=== PATIENT | female | born 1995 ===

== ENCOUNTER 2019-09-06 17:08 | Emergency (ER) | payer OTHER, MEDICAID ==
[~2019-09-06] VITALS: Ht 165.1 cm; Wt 88.2 kg
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
[2019-09-06 17:33] LABS: BASOPHILS # (AUTO) 0.03 x10^3/uL (0-0.1); BASOPHILS % (AUTO) 0 % (0-1); EOSINOPHILS # (AUTO) 0.08 x10^3/uL (0-0.4); EOSINOPHILS % (AUTO) 1 % (1-7); LYMPHOCYTES # (AUTO) 2.41 x10^3/uL (1-3.4); LYMPHOCYTES % (AUTO) 34 % (22-44); MD NO; MEAN CORPUSCULAR HEMOGLOBIN 31.3 pg (27.0-34.8); MEAN CORPUSCULAR VOLUME 92.1 fL (80-100); MEAN PLATELET VOLUME 8.6 fL (7.4-10.4); MONOCYTES # (AUTO) 0.36 x10^3/uL (0.2-0.8); MONOCYTES % (AUTO) 5 % (2-9); NEUTROPHILS # (AUTO) 4.21 x10^3/uL (1.8-6.8); NEUTROPHILS % (AUTO) 59 % (42-75); PLATELET COUNT 255 x10^3/uL (130-400); RED BLOOD COUNT 4.54 x10^6/uL (3.82-5.3); RED CELL DISTRIBUTION WIDTH 12.5 % (9.6-15.2)
--- NOTE | 2019-09-06 17:40 | NUR ---
DR. MCKINLEY AT BEDSIDE FOR EVALUATION, AWAITING ORDERS
[2019-09-06 17:44] LABS: ALANINE AMINOTRANSFERASE 19 U/L (12-78); ANION GAP 5 mmol/L (5-15); CALCIUM 9.7 mg/dL (8.5-10.1); CHLORIDE 110 mmol/L (98-107); CREATININE 0.78 mg/dL (0.55-1.02)
--- NOTE | 2019-09-06 17:45 | NUR ---
UA CANCELLED BY DR. MCKINLEY, NO UA TO BE COLLECTED PER MD.
[2019-09-06 17:48] LABS: ALKALINE PHOSPHATASE 117 U/L (45-117); BILIRUBIN,TOTAL 0.6 mg/dL (0.2-1.0); TOTAL PROTEIN 8.3 g/dL (6.4-8.2)
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
[2019-09-06 19:10] VITALS: BP 127/86
== END 2019-09-06 19:32 | disposition home or self-care (01) ==
LOC: ED 18:28
DX: T74.21XA Adult sexual abuse, confirmed, initial encounter (principal); R10.84 Generalized abdominal pain
CPT/HCPCS: 36415; 80053; 84703; 85025; 99283